=== PATIENT | female | born 1960 | race Caucasian/White ===

== ENCOUNTER → 2017-01-15 | Outpatient (CLI) | payer MEDICARE ==
--- NOTE | 2017-01-15 11:46 | US ---
Superficial sonogram left neck. Indication: LEFT POSTERIOR NODE Comparison: None. Impression: At the palpable area of concern there is a 8 mm hypoechoic septated lymph node. No pathologically enlarged lymphadenopathy identified. Electronically signed by: Renny Chopra MD 01/15/2017 11:45 AM MANUFACTURING SALES REPRESENTATIVE
== END | disposition home or self-care (01) ==
LOC: US 09:44
PROVIDERS: ATTEND Nurse Practitioner Family
DX: R22.9 Localized swelling, mass and lump, unspecified (principal)

== ENCOUNTER → 2017-07-05 | Outpatient (CLI) | payer MEDICARE ==
--- NOTE | 2017-07-06 10:53 | US ---
EXAM DESCRIPTION: Soft Tissue,Extremity right foot CLINICAL HISTORY: 57 years, Female, PAIN IN RIGHT FOOT COMPARISON: FINDINGS: Targeted scanning performed of the right foot were patient has a tender palpable lesion. A subcutaneous lesion present here probably hypoechoic measuring 1.3 x 0.7 cm and axial cross-section. The length of the lesion is about 4.0 cm. Small amount of vascular in the mass. Mildly lobular, slightly irregular, contours. IMPRESSION: Targeted scanning identifies a hypoechoic mass apparently in the subcutaneous tissues of the right foot. Small amount of intrinsic vascularity in the mass which has mildly lobular smooth borders. This is indeterminate lesion. Consider additional characterization with MRI or CT scan Electronically signed by: Tay Menchaca MD 07/06/2017 10:52 AM CDT
== END | disposition home or self-care (01) ==
LOC: US 14:29
PROVIDERS: ATTEND Nurse Practitioner Family
DX: E11.9 Type 2 diabetes mellitus without complications (principal); M79.671 Pain in right foot

== ENCOUNTER → 2017-07-24 | Outpatient (CLI) | payer MEDICARE ==
--- NOTE | 2017-07-24 15:22 | MRI ---
MRI right foot without contrast INDICATION: Foot mass painful to touch TECHNIQUE: Noncontrast MR imaging right foot FINDINGS: Marker capsules noted on the plantar aspect of the foot. There is a bilobed ovoid appearing soft tissue mass in this area measuring 23 mm long by up to 8 mm in thickness. This is along the plantar musculature and corresponds to the palpable abnormality. No fracture or osseous destructive lesion. There is mild adjacent soft tissue edema. The mass is slightly heterogeneous and is intimate with the medial aspect of the medial aspect of the plantar aponeurosis. 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 There is a tiny accessory navicular ossification. There is tendinosis of the distal posterior tibialis tendon without rupture or retraction. Minimal osteophyte formation of the dorsal talonavicular joint. Minimal osteoarthrosis of the first MTP joint. 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 Electronically signed by: Leonard Walker MD 07/24/2017 3:21 PM CDT
== END | disposition home or self-care (01) ==
LOC: MRI 10:47
PROVIDERS: ATTEND Nurse Practitioner Family
DX: M79.671 Pain in right foot (principal); M72.2 Plantar fascial fibromatosis

== ENCOUNTER → 2017-08-15 | Outpatient (CLI) | payer MEDICARE ==
--- NOTE | 2017-08-16 11:32 | MAM ---
EXAM DESCRIPTION: 3D Screening BILATERAL CLINICAL HISTORY: 57 yearsFemaleSCREENING no complaints. Remote family history of breast cancer. Postmenopausal. HRT more than five years ago. COMPARISON: 2-D digital screening bilateral studies 08/05/2015 and 08/28/2014. Report from prior examination also reviewed. TECHNIQUE: Bilateral CC and MLO projection full-field images, 3-D tomosynthesis digital mammographic technique. Also bilateral synthesized CC/ MLO full-field images. CAD not utilized. FINDINGS: The breast parenchymal density pattern is: Heterogeneously dense breast tissue, which may obscure small masses. No skin thickening or nipple retraction bilateral axillary lymph nodes. Bilateral solitary microcalcifications. Linear distribution of round calcifications in the middle third of the right breast near the posterior nipple line stable. Intramammary lymph node again noted in the middle third of the right breast. No focal, stellate mass or density, focal asymmetry , and no suspicious microcalcifications bilaterally. Stable mammograms compared to prior study, taking into account differences in mammographic technique IMPRESSION: BI-RADS CATEGORY: 2 - BENIGN FINDINGS. FOLLOW UP: Routine digital bilateral screening, one year interval from July 2017. Written communication explaining the IMPRESSION and follow-up, will be mailed to the patient and referring health care provider. According to the [employer], yearly mammograms are recommended starting at age 40 and continuing as long as a woman is in good health. Any breast change noted on a breast self-exam should be reported promptly to the patient's healthcare provider. Breast MRI is recommended for women with an approximately 20-25% or greater lifetime risk of breast cancer, including women with a strong family history of breast or ovarian cancer and women who have been treated for Hodgkin's disease. A negative mammographic report should not delay tissue diagnosis in patients with significant clinical history or physical findings. Extremely dense breast tissue limits the sensitivity of digital mammography. Electronically signed by: Ashwin Morocho MD 08/16/2017 11:31 AM CDT
== END ==
LOC: MAMMO 11:43
PROVIDERS: ATTEND Nurse Practitioner Family
DX: Z12.31 Encounter for screening mammogram for malignant neoplasm of breast (principal)
CPT/HCPCS: 77063; G0202

== ENCOUNTER → 2017-08-28 | Outpatient (CLI) | payer MEDICARE ==
--- NOTE | 2017-08-28 13:06 | RAD ---
HISTORY: PRE OP TECHNIQUE: PA and lateral views of the chest. COMPARISON: None available. FINDINGS: The lungs are well-inflated and clear. The cardiomediastinal silhouette and pulmonary vasculature are within normal limits. Mild thoracic spondylosis is present. IMPRESSION: No radiographic evidence of acute cardiopulmonary disease. [id number] Electronically signed by: Juan Fields 08/28/2017 1:05 PM CDT Workstation: [id number]
== END | disposition home or self-care (01) ==
LOC: LAB.O 08:15
PROVIDERS: ATTEND Nurse Practitioner Family
DX: M25.871 Other specified joint disorders, right ankle and foot (principal)

== ENCOUNTER → 2018-03-22 | Outpatient (CLI) | payer OTHER | LOC: YCFC.O 09:20 | PROVIDERS: ATTEND Nurse Practitioner Family | DX: E78.2 Mixed hyperlipidemia (principal); E11.9 Type 2 diabetes mellitus without complications; I10 Essential (primary) hypertension; E03.9 Hypothyroidism, unspecified ==

== ENCOUNTER → 2018-06-18 | Outpatient (CLI) | payer OTHER | LOC: YCFC.O 08:37 | PROVIDERS: ATTEND Nurse Practitioner Family | DX: E11.9 Type 2 diabetes mellitus without complications (principal) ==

== ENCOUNTER → 2018-08-22 | Outpatient (CLI) | payer OTHER ==
--- NOTE | 2018-08-27 11:24 | MAM ---
EXAM DESCRIPTION: 3D Screening BILATERAL : Digital Mammography. CLINICAL HISTORY: 58 years Female SCREEN . No complaints. No family history or personal history of breast cancer. Childbirth. Postmenopausal 16 years. Taken HRT 5 or more years ago.. Lifetime risk of developing breast cancer (Tyrer-Cuzick model)(%): 5.3% COMPARISON: Bilateral screening breast tomosynthesis 08/15/2017. TECHNIQUE: Bilateral CC and MLO projection full-field images, Digital tomosynthesis mammographic technique. Bilateral digital 2-D full-field MLO images. CAD not utilized. FINDINGS: The breast parenchymal density pattern is: Heterogeneously dense breast tissue, which may obscure small masses. No skin thickening or nipple retraction. Bilateral solitary microcalcifications. Stable group of microcalcifications in the mid right breast. No new focal, stellate mass or density, focal asymmetry , and no suspicious microcalcifications bilaterally. Stable mammograms compared to prior study. IMPRESSION: Benign exam. BIRAD CATEGORY: 2 BENIGN FINDINGS. RECOMMENDATIONS: FOLLOW UP: Routine digital bilateral screening, one year interval from August 2018. Written communication explaining the IMPRESSION and follow-up, will be mailed to the patient and referring health care provider. According to the [employer], yearly mammograms are recommended starting at age 40 and continuing as long as a woman is in good health. Any breast change noted on a breast self-exam should be reported promptly to the patient's healthcare provider. Breast MRI is recommended for women with an approximately 20-25% or greater lifetime risk of breast cancer, including women with a strong family history of breast or ovarian cancer and women who have been treated for Hodgkin's disease. A negative mammographic report should not delay tissue diagnosis in patients with significant clinical history or physical findings. Extremely dense breast tissue limits the sensitivity of digital mammography. Electronically signed by: Ashwin Morocho MD 08/27/2018 11:23 AM CDT
== END ==
LOC: MAMMO 08:00
PROVIDERS: ATTEND Nurse Practitioner Family
DX: Z12.31 Encounter for screening mammogram for malignant neoplasm of breast (principal)

== ENCOUNTER → 2019-06-03 | Outpatient (CLI) | payer OTHER | LOC: LAB.O 13:43 | PROVIDERS: ATTEND Nurse Practitioner Family | DX: N39.0 Urinary tract infection, site not specified (principal) ==

== ENCOUNTER → 2019-06-13 | Outpatient (CLI) | payer OTHER | LOC: YCFC.O 08:58 | PROVIDERS: ATTEND Nurse Practitioner Family | DX: E11.65 Type 2 diabetes mellitus with hyperglycemia (principal) ==

== ENCOUNTER → 2019-07-02 | Outpatient (CLI) | payer OTHER | LOC: LAB.O 15:21 | PROVIDERS: ATTEND Nurse Practitioner Family | DX: N39.0 Urinary tract infection, site not specified (principal) ==

== ENCOUNTER → 2020-03-25 | Outpatient (CLI) | payer OTHER ==
--- NOTE | 2020-03-25 12:21 | MAM ---
EXAM DESCRIPTION: 3D Screening BILATERAL : Digital Mammography. CLINICAL HISTORY: 59 years Female SCREEN . No complaints. Remote family history of breast cancer. Menarche age 11. Childbirth age 15. Menopause age 41. HRT 5 or more years ago. Lifetime risk of developing breast cancer (Tyrer-Cuzick model)(%): 5.2. COMPARISON: Bilateral screening digital breast tomosynthesis August 2018 and July 2017. TECHNIQUE: Bilateral CC and MLO projection full-field images, with [employer]placement digital tomosynthesis mammographic technique. Bilateral 2-D digital full-field images, MLO and CC projections, non-displaced. Bilateral digital 2-D full-field MLO images. and CC images. CAD available for 2-D images. FINDINGS: The breast parenchymal density pattern is: Heterogeneously dense breast tissue, which may obscure small masses. No skin thickening or nipple retraction. Stable linear distribution of calcifications anterior to mid right breast may be within a vascular channel. Stable group of benign type microcalcifications. Left breast. Right axillary lymph nodes. Bilateral skin calcifications. No new focal, stellate mass or density, focal asymmetry , and no suspicious microcalcifications . Stable mammograms compared to prior study. IMPRESSION: Benign exam. BIRAD CATEGORY: 2 BENIGN FINDINGS. RECOMMENDATIONS: FOLLOW UP: Routine digital bilateral mammographic screening, one year interval from March 2020. Written communication explaining the IMPRESSION and follow-up, will be mailed to the patient and referring health care provider. According to the [employer], yearly mammograms are recommended starting at age 40 and continuing as long as a woman is in good health. Any breast change noted on a breast self-exam should be reported promptly to the patient's healthcare provider. Breast MRI is recommended for women with an approximately 20-25% or greater lifetime risk of breast cancer, including women with a strong family history of breast or ovarian cancer and women who have been treated for Hodgkin's disease. A negative mammographic report should not delay tissue diagnosis in patients with significant clinical history or physical findings. Extremely dense breast tissue limits the sensitivity of digital mammography. Electronically signed by: Ashwin Morocho MD 03/25/2020 12:19 PM CDT
== END ==
LOC: MAMMO 08:30
PROVIDERS: ATTEND Family Medicine
DX: Z12.31 Encounter for screening mammogram for malignant neoplasm of breast (principal)

== ENCOUNTER → 2020-05-24 | Outpatient (CLI) | payer MEDICARE | LOC: YCFC.O 08:28 | PROVIDERS: ATTEND Family Medicine | DX: E11.9 Type 2 diabetes mellitus without complications (principal) ==

== ENCOUNTER → 2020-08-23 | Outpatient (CLI) | payer MEDICARE | LOC: YCFC.O 09:24 | PROVIDERS: ATTEND Family Medicine | DX: E11.9 Type 2 diabetes mellitus without complications (principal); E78.2 Mixed hyperlipidemia; E03.9 Hypothyroidism, unspecified ==

== ENCOUNTER → 2020-11-16 | Outpatient (CLI) | payer MEDICARE | LOC: YCFC.O 08:04 | PROVIDERS: ATTEND Family Medicine | DX: E11.9 Type 2 diabetes mellitus without complications (principal); I10 Essential (primary) hypertension ==

== ENCOUNTER 2020-11-24 05:49 | Day surgery (SDC) | payer MEDICARE ==
[2020-11-24] MEDS ORDERED: LACTATED RINGERS 1,000 ML ONE (05:59)
[2020-11-24] MEDS ORDERED: LIDOCAINE 1% 10 ML VIAL INJ ONE (07:00)
[2020-11-24] MEDS ORDERED: PROPOFOL 200 MG/20 ML VIAL IV ONE ×2 (07:00→07:28)
[2020-11-24] MEDS ORDERED: SODIUM CHLORIDE 0.9% (FLUSH) 10 ML SYG ONE (07:29)
[2020-11-24] MEDS ORDERED: LACTATED RINGERS 1,000 ML IVS ONE (07:40)
[2020-11-24 09:18] VITALS: BP 149/85; TEMP 97.2; O2SAT 98
--- NOTE | 2020-11-24 09:19 | OP ---
DATE OF PROCEDURE: 11/24/20 PREOPERATIVE DIAGNOSIS: 1. Positive Cologuard. 2. Family history of colon cancer in the patient's mother. 3. Personal history of colon polyps. POSTOPERATIVE DIAGNOSIS: 1. Two colon polyps. 2. Sigmoid diverticulosis. PROCEDURE: 1. Colonoscopy plus polypectomy. SURGEON: Santos Barksdale MD. COMPLICATIONS: None apparent. BLOOD LOSS: None. MEDICATIONS: Monitored anesthesia care. DESCRIPTION OF PROCEDURE: Informed consent was obtained prior to sedation. The preprocedure cardiopulmonary assessment was satisfactory. The patient was placed in the left lateral decubitus position and was sedated. A digital rectal exam was unremarkable. The tip of the Olympus colonoscope was inserted in the rectum and guided over to the cecum. The cecum was identified by locating the ileocecal valve and appendiceal orifice. Retroflexed view of the right colon was obtained. The [place] Bowel Prep Score was 5. I do think I was able to clear the mucosa enough with irrigation in order to rule out colon cancer. However, I think it is possible that tiny polyps could have been overlooked due to the suboptimal prep. The mucosa of the cecum, ascending colon, hepatic flexure, transverse colon, splenic flexure, descending colon and sigmoid colon was closely examined. Direct and retroflexed views of the rectum were obtained. The patient had two small colon polyps seen. She had a 2 mm polyp in the cecum that was removed with a cold snare and recovered. She had a 3 mm ascending colon polyp that was removed with a cold snare and recovered. The patient had some sigmoid diverticulosis. Otherwise, her colonoscopy was unremarkable. RECOMMENDATIONS: 1. Followup polyp pathology. 2. Due to the patient's suboptimal prep, I do recommend followup colonoscopy in 3 years. 3. Followup with me p.r.n. #[id number] cc: Ovidio Atkinson [facility]
== END 2020-11-24 09:12 | disposition home or self-care (01) ==
LOC: AMB 05:49
PROVIDERS: ATTEND Internal Medicine Gastroenterology
DX: R19.5 Other fecal abnormalities (principal); D12.0 Benign neoplasm of cecum; D12.2 Benign neoplasm of ascending colon; K57.30 Diverticulosis of large intestine without perforation or abscess without bleeding; E11.9 Type 2 diabetes mellitus without complications; I10 Essential (primary) hypertension; E07.9 Disorder of thyroid, unspecified; E66.9 Obesity, unspecified; Z68.32 Body mass index [BMI] 32.0-32.9, adult; Z86.010 Personal history of colon polyps; Z80.0 Family history of malignant neoplasm of digestive organs; Z90.710 Acquired absence of both cervix and uterus
CPT/HCPCS: 00811; 36415; 36416; 45385; 82948; 88305; A4216; J3490; J7120